=== PATIENT | female | born 1955 | race Asian ===

== ENCOUNTER 2021-04-28 17:15 | Emergency (ER) | payer OTHER, MEDICARE ==
[~2021-04-28] VITALS: Ht 160 cm; Wt 63.5 kg
--- NOTE | 2021-04-28 17:20 | NUR ---
Patient to ER bed 8 to gown for evaluation. Side rails up.
[2021-04-28 17:21] VITALS: BP_SYST 162
--- NOTE | 2021-04-28 17:24 | NUR ---
# 20 gauge angiocath placed to LAC and RAC. Use of asceptic technique. Opsite placed over site. Blood return noted. Blood for lab drawn from site. Flushed with 10 cc of normal saline. No evidence of infiltration noted. Patient tolerated well.
--- NOTE | 2021-04-28 17:25 | NUR ---
Pt presents to ED c/o CVA symptoms with sudden onset of R sided weakness and dizziness.Pt reports LWK time at approx 1645.Pt h/o HTN
--- NOTE | 2021-04-28 17:27 | NUR ---
Code Stroke code called, Tele neuro initiated.
--- NOTE | 2021-04-28 17:30 | NUR ---
Patient transported to radiology via GURNEY, accompanied by RAD STAFF.
--- NOTE | 2021-04-28 17:30 | NUR ---
PT VOMITING UNABLE PERFORM SWALLOW EVAL
--- NOTE | 2021-04-28 17:36 | NUR ---
Pt back from CT scan, re-attached to agent.
--- NOTE | 2021-04-28 17:39 | NUR ---
Lab at bedside for blood draw.
--- NOTE | 2021-04-28 17:45 | NUR ---
Tele-psych physician assessment per BIMAL began.
--- NOTE | 2021-04-28 18:05 | NUR ---
PT WITH NAUSEA, MEDICATED ORDERED. PER DR FAIRBANKS, GIVE ZOFRAN 4MG IVP ORDERED. Addendum: 04/28/21 at [email or web address] HOLLIS
[2021-04-28] MEDS ORDERED: ONDANSETRON HCL 4 MG/2 ML VIAL ONE (18:08)
[2021-04-28 18:09] LABS: BASOPHILS # (AUTO) 0.1 K/uL (0.0-0.2); BASOPHILS % (AUTO) 0.8 % (0.0-2.0); EOSINOPHILS # (AUTO) 0.1 K/uL (0.0-0.4); EOSINOPHILS % (AUTO) 0.8 % (0.0-4.0); HEMATOCRIT 43.2 % (36-48); HEMOGLOBIN 14.8 g/dL (12.0-16.0); LYMPHOCYTES # (AUTO) 2.6 K/uL (1.0-5.5); LYMPHOCYTES % (AUTO) 27.4 % (20.5-51.5); MEAN CORPUSCULAR HEMOGLOBIN 33 pg (27-31); MEAN CORPUSCULAR HGB CONC 34 % (32-36); MEAN CORPUSCULAR VOLUME 96 fL (79.0-98.0); MONOCYTES # (AUTO) 0.6 K/uL (0.0-1.0); MONOCYTES % (AUTO) 6.6 % (1.7-9.3); NEUTROPHILS # (AUTO) 6.2 K/uL (1.8-7.7); NEUTROPHILS % (AUTO) 64.4 % (40.0-70.0); PLATELET COUNT (AUTO) 312 K/uL (130-430); RED BLOOD CELL COUNT(AUTO) 4.52 MIL/uL (4.2-6.2); RED CELL DISTRIBUTION WIDTH 13.8 % (9.0-15.0); WHITE BLOOD COUNT (AUTO) 9.7 K/uL (4.8-10.8)
[2021-04-28] MEDS ORDERED: ALTEPLASE 100 MG VIAL IV ONE (18:15)
[2021-04-28] MEDS ORDERED: ALTEPLASE 100 MG VIAL IVP ONE (18:15)
[2021-04-28 18:17] LABS: CALCIUM 9.4 mg/dL (8.4-11.0); CREATININE 0.77 mg/dL (0.55-1.30); POTASSIUM 3.1 mmol/L (3.5-5.1)
[2021-04-28 18:19] LABS: INR 0.9 (0.8-1.2); PROTHROMBIN TIME 10.1 SECS (9.5-12.5)
[2021-04-28] MEDS ORDERED: IOHEXOL 350 mgI/mL, 150 ML INFUS..BTL IV ONE (18:19)
--- NOTE | 2021-04-28 18:20 | NUR ---
Pt agreded to tPa administration verbalized understanding.
[2021-04-28 18:23] LABS: ALBUMIN 3.9 g/dL (3.4-4.8); TOTAL BILIRUBIN 0.4 mg/dL (0.0-1.0)
[2021-04-28] MEDS ORDERED: hydrALAZINE HCL 20 MG/ML VIAL IVP ONE (18:45)
--- NOTE | 2021-04-28 18:53 | NUR ---
Pt consented for CTA.Patient transported to radiology via gurney, accompanied by rad staff and RN.
--- NOTE | 2021-04-28 19:30 | NUR ---
PT TOLERTAING tPa CONTINOUS MONITORING IN PROGRESS
[2021-04-28 19:45] VITALS: BP_SYST 183
--- NOTE | 2021-04-28 19:45 | NUR ---
[place] [facility] [place] being [place] due to higher level of care. Receiving facility has accepting physician and available space. ER physician has signed transfer form. Patient or responsible republican has agreed to transfer and signed form. Patient belongings inventoried and will be sent with patient. Copy of nursing notes, lab reports, EKG, Physicians Orders and X-rays to be sent with patient. Report called to [facility] at receiving facility. Receiving physician is . [facility] ambulance service AT [facility]EDS[facility] FOR TRANSPORT.
== END 2021-04-28 19:45 | disposition short-term general hospital (02) ==
LOC: SED 17:15
DX: I63.9 Cerebral infarction, unspecified (principal); I16.1 Hypertensive emergency
CPT/HCPCS: 36415; 37195; 70450; 70496; 70498; 71045; 76376; 80053; 84484; 85025; 85610; 85730; 86886; 86900; 86901; 93005; 96374; 99291; J0360; J2405; J2997; Q9967 ×2